=== PATIENT | male | born 1960 | race Caucasian/White ===

== ENCOUNTER 2020-04-11 16:53 | Emergency (ER) | payer BC, OTHER ==
[~2020-04-11] VITALS: Ht 177.8 cm; Wt 90.7 kg
[~2020-04-11 16:53] MED LIST: Hydrocodone-Ap1 EA23 PO
== END 2020-04-11 18:28 | disposition home or self-care (01) ==
LOC: ER 16:53
DX: U07.1 COVID-19 (principal)
CPT/HCPCS: 99284